=== PATIENT | female | born 1995 | race Caucasian/White ===

== ENCOUNTER 2018-07-26 09:36 | Emergency (ER) | payer OTHER, MEDICAID ==
[~2018-07-26] VITALS: Ht 157.5 cm; Wt 52.8 kg
[2018-07-26 09:44] VITALS: BP 142/76
--- NOTE | 2018-07-26 10:00 | NUR ---
referred to ED by PCP for "tachycardia at 130 bpm". HR at this time is 86 even and regular, pt is in NSR, denies CP, SOB, dizziness, N/V. SKIN IS PINK/WARM/DRY; AAOX4 WITH EVEN AND STEADY GAIT; LUNGS CLEAR BL; PATIENT STATES PAIN OF 0/10 AT THIS TIME; VSS; PATIENT POSITIONED FOR COMFORT; HOB ELEVATED; BEDRAILS UP X1; BED DOWN. ER MD MADE AWARE OF PT STATUS.
--- NOTE | 2018-07-26 10:02 | NUR ---
pt placed on traffic monitor specialist
--- NOTE | 2018-07-26 10:10 | NUR ---
ermd at bedside
--- NOTE | 2018-07-26 10:21 | NUR ---
Patient discharged with v/s stable. Written and verbal after care instructions given and explained to pt and caregiver. Patient & caregiver verbalized understanding. Ambulatory with steady gait. All questions addressed prior to discharge. Advised to follow up with PMD.
[2018-07-26 10:22] VITALS: BP 120/78
== END 2018-07-26 10:21 | disposition home or self-care (01) ==
LOC: MED 09:36
DX: R00.2 Palpitations (principal); R00.0 Tachycardia, unspecified
CPT/HCPCS: 93005; 99283

== ENCOUNTER 2022-05-26 09:25 | Emergency (ER) | payer OTHER, MEDICAID ==
[~2022-05-26] VITALS: Ht 165.1 cm; Wt 67.1 kg
[2022-05-26 09:34] VITALS: BP 133/98
--- NOTE | 2022-05-26 09:42 | NUR ---
MD MARTINEZ AT BEDSIDE FOR EVALUATION.
[2022-05-26] MEDS ORDERED: ACETAMINOPHEN EXTRA STRENGTH 500 MG TAB PO ONE (09:45)
--- NOTE | 2022-05-26 09:45 | NUR ---
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 REPORTS TWISTING WHILE ON WALK. PAIN AT MOST ON BEARING WEIGHT. ANKLE W/O VISIBLE INJURY OR SWELLING, CAP REFILL <3 THROUGHOUT. AMB W/ STEADY GAIT. DENIES TAKING MEDICATION, NUMBING OR LOSS OF SENSATION. PT AAOX4, NO VISIBLE DISTRESS. HOB POSITIONED PER COMFORT. HX: INTELLECTUAL DISABILITY NKA
[2022-05-26] MEDS ORDERED: ACET-10509 PO (10:08)
[2022-05-26] MEDS ORDERED: IBUP-1842 PO (10:08)
--- NOTE | 2022-05-26 10:16 | NUR ---
Patient discharged with v/s stable. Written and verbal after care instructions FOR RICE THERAPY AND ANKLE SPRAIN given and explained. Patient alert, oriented and verbalized understanding of instructions. Ambulatory with by caregiver. All questions addressed prior to discharge. ID band removed. Patient advised to follow up with PMD. Rx of TYLENOL XTRA STRENGTH AND IBUPROFEN given. Opportunity to ask questions provided and answered.
--- NOTE | 2022-05-26 10:17 | NUR ---
The patient's care was reviewed and supervised by Marycruz Thomason RN.
== END 2022-05-26 10:16 | disposition home or self-care (01) ==
LOC: MED 09:25
DX: S93.402A Sprain of unspecified ligament of left ankle, initial encounter (principal); W50.2XXA Accidental twist by another person, initial encounter; Y93.89 Activity, other specified; Y92.89 Other specified places as the place of occurrence of the external cause; Y99.8 Other external cause status
CPT/HCPCS: 99282